=== PATIENT | male | born 1960 | race Caucasian/White ===

== ENCOUNTER 2021-03-30 18:30 | Emergency (ER) | payer BC, OTHER ==
--- NOTE | 2021-03-30 19:17 | EDM.PDOC ---
ED HPI GENERAL MEDICAL PROBLEM - General Chief Complaint: Respiratory Problem Stated Complaint: covid pos day 9 Time Seen by Provider: 03/30/21 18:49 Source of Information: Reports: Patient History Limitations: Reports: No Limitations - History of Present Illness INITIAL COMMENTS - FREE TEXT/NARRATIVE: Mr. Chery is a very pleasant 60-year-old gentleman who now presents to the ED with symptoms due to COVID-19. He states that he, his , and daughter all tested positive for COVID-19 last , 03/22/2021. For the past 7 days, he has been running a mildly elevated temperature around 100.3 degrees, along with nausea, watery diarrhea, a nonproductive cough, and loss of taste and smell. He states that he has been having worsening dyspnea, worse with exertion, for the past 5 days. He states that it feels like he cannot take a deep breath. No recent chest pain or palpitations. He states that he has been taking Tylenol PM and ibuprofen. He tried a cough medicine on one occasion, which did not help. Here in the ED, the patient's initial BP is found to be mildly elevated at 142/86, with tachycardia of 114 bpm and tachypnea of 22 rpm. He is afebrile, saturating 86% on room air, but up to 98% on 1 L of O2 per nasal cannula, then down to 94% on room air again. He appears to be relatively comfortable and in no acute distress. Prior to 7 days ago, the patient denies having a recent fever, chills, sore throat, ear pain, nasal or sinus congestion, cough, dyspnea, chest pain, palpitations, nausea, vomiting, constipation, diarrhea, abdominal pain, urinary symptoms, recent weight gain or weight loss, recent bloody bowel movements or black bowel movements, recent joint aches, headaches, or rashes. SocHx per the triage nurse. The patient does not have a PCP. - Related Data Allergies Allergy/AdvReac Type Severity Reaction Status Date / Time No Known Allergies Allergy Verified 03/30/21 18:51 Home Meds: Home Meds . [No Known Home Meds] 03/30/21 [History] Past Medical History HEENT History: Reports: Impaired Vision - Infectious Disease History Infectious Disease History: Reports: Novel Coronavirus (dx'd 03/22/2021) Social & Family History - Family History Family Medical History: No Pertinent Family History - Tobacco Use Tobacco Use Status *Q: Never Tobacco User Second Hand Smoke Exposure: No - Caffeine Use Caffeine Use: Reports: Coffee - Recreational Drug Use Recreational Drug Use: No ED ROS GENERAL - Review of Systems Review Of Systems: Comprehensive ROS is negative, except as noted in HPI. ED EXAM, GENERAL - Physical Exam Exam: See Below Exam Limited By: No Limitations General Appearance: Alert, WD/WN, No Apparent Distress Eye Exam: Bilateral Eye: EOMI, Normal Inspection Ears: Normal External Exam, Hearing Grossly Normal Nose: Normal Inspection Throat/Mouth: Normal Inspection, Normal Lips, Normal Voice, No Airway Compromise Head: Atraumatic, Normocephalic Neck: Normal Inspection, Full Range of Motion. No: Lymphadenopathy (L), Lymphadenopathy (R) Respiratory/Chest: No Respiratory Distress, Lungs Clear, Normal Breath Sounds, No Accessory Muscle Use, Other (Occasional slight dry-sounding cough). No: Decreased Breath Sounds, Crackles, Rhonchi, Wheezing, Stridor, Prolonged Expiration Cardiovascular: Normal Peripheral Pulses, No Edema, No Gallop, No JVD, No Murmur, No Rub, Tachycardia (regular) Peripheral Pulses: 3+: Radial (L), Radial (R) GI/Abdominal: Normal Bowel Sounds, Soft, Non-Tender, No Organomegaly, No Distention, No Abnormal Bruit, No Mass Back Exam: Normal Inspection, Full Range of Motion, NT Extremities: Normal Inspection, Normal Range of Motion, No Pedal Edema, Normal Capillary Refill Neurological: Alert, Oriented, Normal Cognition, No Motor/Sensory Deficits Psychiatric: Normal Affect Skin Exam: Warm, Dry, Intact, Normal Color, No Rash #1 Interpretation EKG Date: 03/30/21 Time: 19:15 Rhythm: Other (Sinus tachycardia) Rate (Beats/Min): 107 [place]: 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) P-Wave: Enlarged (SANJAY) QRS: Other (Late transition) ST-T: Normal QT: Normal Comparison: NA - No Prior EKG Course - Vital Signs Last Recorded V/S: Last Vital Signs Temp 37.6 C 03/30/21 18:46 Pulse 114 H 03/30/21 18:46 Resp 22 H 03/30/21 18:46 BP 142/86 H 03/30/21 18:46 Pulse Ox 86 L 03/30/21 18:46 - Orders/Labs/Meds Orders: Active Orders 24 hr Category Date Time Status EKG Documentation Completion [RC] STAT Care 03/30/21 19:04 Active CULTURE BLOOD [BC] Stat Lab 03/30/21 19:35 Received CULTURE BLOOD [BC] Stat Lab 03/30/21 19:41 Received Blood Culture x2 Reflex Set [OM.PC] Stat Oth 03/30/21 19:06 Ordered Labs: Laboratory Tests 03/30/21 03/30/21 03/30/21 Range/Units 19:06 19:35 19:35 WBC 4.68 (4.23-9.07) K/mm3 RBC 5.14 (4.63-6.08) M/mm3 Hgb 14.8 (13.7-17.5) gm/dl Hct 44.5 (40.1-51.0) % MCV 86.6 (79.0-92.2) fl MCH 28.8 (25.7-32.2) pg MCHC 33.3 (32.2-35.5) g/dl RDW Std Deviation 40.8 (35.1-43.9) fL Plt Count 114 L (163-337) K/mm3 MPV 10.2 (9.4-12.3) fl Neutrophils % (Manual) 82 H (40-60) % Band Neutrophils % 1 (0-10) % Lymphocytes % (Manual) 13 L (20-40) % Atypical Lymphs % 0 % Monocytes % (Manual) 4 (2-10) % Eosinophils % (Manual) 0 L (0.8-7.0) % Basophils % (Manual) 0 L (0.2-1.2) Platelet Estimate Decreased Plt Morphology Comment See note RBC Morph Comment Normal D-Dimer, Quantitative (0.19-0.50) mg/L Sodium 140 (136-145) mEq/L Potassium 3.5 (3.5-5.1) mEq/L Chloride 103 (98-107) mEq/L Carbon Dioxide 26 (21-32) mEq/L Anion Gap 14.5 (5-15) BUN 22 H (7-18) mg/dL Creatinine 1.2 (0.7-1.3) mg/dL Est Cr Clr Drug Dosing 61.97 mL/min Estimated GFR (MDRD) > 60 (>60) mL/min BUN/Creatinine Ratio 18.3 H (14-18) Glucose 127 H (74-106) mg/dL Lactic Acid (0.4-2.0) mmol/L Calcium 8.5 (8.5-10.1) mg/dL Magnesium 1.7 L (1.8-2.4) mg/dl Total Bilirubin 0.4 (0.2-1.0) mg/dL AST 44 H (15-37) U/L ALT 46 (16-63) U/L Alkaline Phosphatase 58 (46-116) U/L Troponin I 0.019 (0.00-0.056) ng/mL NT-Pro-B Natriuret Pep 81 (0-125) pg/mL Total Protein 7.2 (6.4-8.2) g/dl Albumin 3.4 (3.4-5.0) g/dl Globulin 3.8 gm/dL Albumin/Globulin Ratio 0.9 L (1-2) 03/30/21 03/30/21 Range/Units 19:35 19:35 WBC (4.23-9.07) K/mm3 RBC (4.63-6.08) M/mm3 Hgb (13.7-17.5) gm/dl Hct (40.1-51.0) % MCV (79.0-92.2) fl MCH (25.7-32.2) pg MCHC (32.2-35.5) g/dl RDW Std Deviation (35.1-43.9) fL Plt Count (163-337) K/mm3 MPV (9.4-12.3) fl Neutrophils % (Manual) (40-60) % Band Neutrophils % (0-10) % Lymphocytes % (Manual) (20-40) % Atypical Lymphs % % Monocytes % (Manual) (2-10) % Eosinophils % (Manual) (0.8-7.0) % Basophils % (Manual) (0.2-1.2) Platelet Estimate Plt Morphology Comment RBC Morph Comment D-Dimer, Quantitative 0.70 H (0.19-0.50) mg/L Sodium (136-145) mEq/L Potassium (3.5-5.1) mEq/L Chloride (98-107) mEq/L Carbon Dioxide (21-32) mEq/L Anion Gap (5-15) BUN (7-18) mg/dL Creatinine (0.7-1.3) mg/dL Est Cr Clr Drug Dosing mL/min Estimated GFR (MDRD) (>60) mL/min BUN/Creatinine Ratio (14-18) Glucose (74-106) mg/dL Lactic Acid 1.4 (0.4-2.0) mmol/L Calcium (8.5-10.1) mg/dL Magnesium (1.8-2.4) mg/dl Total Bilirubin (0.2-1.0) mg/dL AST (15-37) U/L ALT (16-63) U/L Alkaline Phosphatase (46-116) U/L Troponin I (0.00-0.056) ng/mL NT-Pro-B Natriuret Pep (0-125) pg/mL Total Protein (6.4-8.2) g/dl Albumin (3.4-5.0) g/dl Globulin gm/dL Albumin/Globulin Ratio (1-2) - Re-Assessments/Exams Free Text/Narrative Re-Assessment/Exam: 03/30/21 19:08 As above, the patient was diagnosed with COVID-19 last , and has been experiencing worsening dyspnea with a nonproductive cough, a mildly elevated temperature, nausea, watery diarrhea, and absence of taste and smell for the past week. On initial presentation to the ED, the patient was found to be tachycardic, with an oxygen saturation of 86% on room air, however, it smooth to 98% on only 1 L of O2 per nasal cannula, and is now 94% on room air. His physical exam, including auscultation of his lungs, is grossly unremarkable. I have ordered a work-up that includes several blood tests, 2 sets of blood cultures, a portable chest x-ray, and an ECG. The patient does not meet criterion for treatment with monoclonal antibodies, and, similarly, if his SpO2 remains above 88% on room air, he will not require supplemental oxygen, and would therefore not qualify for corticosteroids, either. 03/30/21 19:56 Portable chest x-ray is read by Dr. Bartlett as: 1. Findings as noted above most likely representing diffuse bronchitis and early areas of pneumonia which are mostly likely [sic] from COVID-19 etiology. 03/30/21 20:35 The patient's CBC is unremarkable. His CMP is remarkable for a BUN slightly elevated 22, but with a Cr within normal limits at 1.2. He has mild hyperglycemia of 127, with the remainder of his CMP being unremarkable. He has a slight hypomagnesemia of 1.7. His lactic acid level is within normal limits at 1.4. His troponin is within normal limits at 0.019. His D-dimer is slightly elevated at 0.70. His pro-BNP is within normal limits at 81. 03/30/21 20:41 Test results discussed with the patient. As above, today's work-up is grossly unremarkable, and no further evaluation is necessary. At present, his SpO2 is 91%, therefore he does not qualify for supplemental oxygen or corticosteroids. I recommended that he and his and daughter continue to quarantine until he tests negative for the virus. The patient states that he already has a home pulse oximeter. I recommended that if his SpO2 drops to 88% or below consistently, that he return to the ED for reevaluation. Departure - Departure Time of Disposition: 20:42 Disposition: Home, Self-Care 01 Condition: Good Clinical Impression: COVID-19 - Discharge Information *PRESCRIPTION DRUG MONITORING PROGRAM REVIEWED*: Not Applicable *COPY OF PRESCRIPTION DRUG MONITORING REPORT IN PATIENT BOYD: Not Applicable Referrals: PCP,None [Primary Care Provider] - Forms: ED Department Discharge Additional Instructions: You were seen in the emergency room for worsening shortness of breath, a dry cough, a mildly elevated temperature, nausea, watery diarrhea, and loss of taste and smell in the setting of being diagnosed with COVID-19 on 03/22/2021. Work-up in the ER included several blood tests, 2 sets of blood cultures, a chest x-ray, and an ECG. Your chest x-ray found mild hazy infiltrates on both sides, consistent with COVID-19. The remainder of your work-up was unremarkable. Based on your history, physical exam, and ER tests, you do not qualify for treatment for COVID-19, such as corticosteroids or monoclonal antibodies. We recommend that you, your , and daughter all continue to strictly quarantine at home until you all test negative for the virus. We recommend that you monitor your home oxygen level. If your SpO2 drops to 88% or below, consistently, we recommend that you return to the ER for reevaluation. If any other problems, please do not hesitate to return to the ER. Sepsis Event Note (ED) - Evaluation Sepsis Screening Result: Possible Sepsis Risk - Focused Exam Vital Signs: Vital Signs Temp Pulse Resp BP Pulse Ox 03/30/21 18:46 37.6 C 114 H 22 H 142/86 H 86 L - My Orders Last 24 Hours: My Active Orders 03/30/21 19:04 EKG Documentation Completion [RC] STAT 03/30/21 19:06 Blood Culture x2 Reflex Set [OM.PC] Stat 03/30/21 19:35 CULTURE BLOOD [BC] Stat 03/30/21 19:41 CULTURE BLOOD [BC] Stat - Assessment/Plan Last 24 Hours: My Active Orders 03/30/21 19:04 EKG Documentation Completion [RC] STAT 03/30/21 19:06 Blood Culture x2 Reflex Set [OM.PC] Stat 03/30/21 19:35 CULTURE BLOOD [BC] Stat 03/30/21 19:41 CULTURE BLOOD [BC] Stat
--- NOTE | 2021-03-30 19:41 | CR ---
Chest: Portable view of the chest was obtained. Comparison: No prior chest imaging is available. Heart size and mediastinum are within normal limits for portable technique. Lung markings are diffusely increased on both sides of the chest. Given that the patient is COVID-19 positive this is most likely due to diffuse bronchitis and early areas of scattered pneumonia. Bony structures are unremarkable. Impression: 1. Findings as noted above most likely representing diffuse bronchitis and early areas of pneumonia which are mostly likely from COVID-19 etiology. Diagnostic code #3
== END 2021-03-30 21:04 | disposition home or self-care (01) ==
LOC: JD.ED 18:30
DX: U07.1 COVID-19 (principal)
CPT/HCPCS: 36415; 71045; 71045-26; 80053; 83605; 83735; 83880; 84484; 85007; 85027; 85379; 87040; 93005; 93010; 99283; 99284-25